=== PATIENT | female | born 1940 | race Caucasian/White ===

== ENCOUNTER → 2020-07-30 11:53 | Outpatient (CLI) | payer MEDICARE, SELFPAY ==
--- NOTE | 2020-07-30 | DI.MG.S_ITS ---
BILATERAL DIGITAL DIAGNOSTIC MAMMOGRAM 3D/2D: 07/30/2020 CLINICAL: Right breast lump. Comparison is made to exams dated: 09/26/2012 mammogram, 03/11/2011 mammogram, 04/29/2010 mammogram, and 11/26/2009 mammogram - [facility]. There are scattered fibroglandular elements in both breasts. No significant masses, calcifications, or other findings are seen in either breast. There are benign calcifications in the right breast which are increased since 2012. There are benign vascular calcifications in both breasts. IMPRESSION: INCOMPLETE: NEEDS ADDITIONAL IMAGING EVALUATION No mammographic evidence of malignancy. A targeted ultrasound of the palpable abnormality is recommended and will immediately follow. This exam was interpreted at Station ID: [id number]. NOTE: For mammograms, a report in lay terms will be sent to the patient. Approximately 15% of breast malignancies will not be visualized mammographically. In the management of a palpable breast mass, a negative mammogram must not discourage biopsy of a clinically suspicious lesion. Electronically Signed By: Wilian Payne M.D. slc/:07/30/2020 14:09:44 ACR BI-RADS Category 0: Incomplete [id number]
--- NOTE | 2020-07-30 | DI.US.S_ITS ---
LIMITED ULTRASOUND OF RIGHT BREAST: 07/30/2020 CLINICAL: Palpable mass right breast. Comparison is made to exams dated: 07/30/2020 mammogram - [facility], 09/26/2012 mammogram, and 03/11/2011 mammogram - [facility]. Color flow and real-time ultrasound of the right breast 12 o'clock region were performed. Kidd scale images of the real-time examination were reviewed. There is a 0.4 cm x 0.3 cm x 0.2 cm superficial round mass with a circumscribed margin in the right breast at 12 o'clock middle depth 2 cm from the nipple. This round mass is hypoechoic with a well-defined boundary and no posterior acoustic shadowing or enhancement. This correlates as palpated. Color flow imaging demonstrates that there is no vascularity present. No sinus tract is seen. IMPRESSION: PROBABLY BENIGN The 0.4 cm superficial mass in the right breast resembles a sebaceous cyst and is probably benign. A follow-up ultrasound in 6 months is recommended to demonstrate stability. Exam findings were conveyed to the patient. Patient is advised to monitor for significant change. Clinical follow-up as needed. This exam was interpreted at Station ID: [id number]. Electronically Signed By: Wilian Payne M.D. slc/:07/30/2020 14:36:04 letter sent: Followup Recommended Ultrasound BI-RADS: 3 Probably benign
== END ==
PROVIDERS: Referring Provider Family Medicine; Visit Provider Family Medicine
DX: R92.8 Other abnormal and inconclusive findings on diagnostic imaging of breast (principal); N63.15 Unspecified lump in the right breast, overlapping quadrants; N64.4 Mastodynia
CPT/HCPCS: 76642; 77066; G0279